=== PATIENT | male | born 1990 | race Caucasian/White ===

== ENCOUNTER 2016-12-27 23:09 | Day surgery (SDCO) | payer OTHER ==
[~2016-12-27] VITALS: Ht 183 cm; Wt 98.0 kg
[2016-12-28 00:16] LABS: BILIRUBIN NEGATIVE (NEGATIVE); BLOOD NEGATIVE Ery/uL (NEGATIVE); CLARITY CLEAR (CLEAR); COLOR YELLOW (YELLOW); GLUCOSE (U) NORMAL (NORMAL); KETONE (U) NEGATIVE (NEGATIVE); LEUKOCYTES NEGATIVE Leu/uL (NEGATIVE); NITRITE NEGATIVE (NEGATIVE); PROTEIN NEGATIVE (NEGATIVE); SPECIFIC GRAVITY 1.015 (1.001-1.030); UROBILINOGEN 0.2 mg/dL (0.2-1.0)
[2016-12-28 00:25] LABS: BASOPHIL 0.1 % (0-2); EOSINOPHIL 0 % (0-5); HGB 15.1 g/dl (13.2-18.0); LYMPHOCYTE 6.2 % (15-48); MCH 31.5 pg (25.0-31.0); MCHC 36.8 g/dL (32.0-36.0); MCV 85.6 fL (78.0-100.0); MONOCYTE 6.4 % (0-12); MPV 9.2 fL (6.0-9.5); NEUTROPHIL 87.3 % (41-80); PLT 259 K/uL (150-400); RBC 4.79 M/uL (4.70-6.00); RDW 12.9 % (11.5-14.0)
[2016-12-28 00:32] LABS: WBC 19.1 K/uL (4.0-10.5)
[2016-12-28 00:43] LABS: ALBUMIN 4.9 g/dL (3.5-5.0); BILIRUBIN - TOTAL 0.3 mg/dL (0.1-1.0); GLOBULIN (CALCULATION) 2.2 g/dL (2.2-4.2); POTASSIUM 3.9 mmol/L (3.5-5.1); TOTAL PROTEIN 7.1 g/dL (6.4-8.3)
[2016-12-29 05:18] LABS: HCT 37.3 % (42.0-52.0); HGB 13.3 g/dl (13.2-18.0); MCH 31.7 pg (25.0-31.0); MCHC 35.7 g/dL (32.0-36.0); MCV 88.8 fL (78.0-100.0); MPV 9.1 fL (6.0-9.5); RBC 4.2 M/uL (4.70-6.00); RDW 13.3 % (11.5-14.0); WBC 12.5 K/uL (4.0-10.5)
[2016-12-29 05:35] LABS: POTASSIUM 4.1 mmol/L (3.5-5.1)
== END 2016-12-29 12:52 | disposition home or self-care (01) ==
LOC: FER 23:09 → FMS 12-28 04:40
PROVIDERS: Emergency Medicine Emergency Medical Services; ADMIT Surgery
DX: K35.80 Unspecified acute appendicitis (principal); Z98.890 Other specified postprocedural states
CPT/HCPCS: 36415; 80048; 80053; 81003; 82150; 83690; 85025; 87040; 88304; G0378; J0131; J1100; J1170; J2270; J2405; J2543; J2704; J3010; Q9967